=== PATIENT | female | born 1970 | race Caucasian/White ===

== ENCOUNTER 2022-11-16 14:01 | Emergency (ER) | payer OTHER, SELFPAY ==
[2022-11-16 15:24] VITALS: BP 109/78; PULSE 82; RESP 16; TEMP 36.3; O2SAT 100
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
== END 2022-11-16 15:58 | disposition home or self-care (01) ==
PROVIDERS: Emergency Provider Nurse Practitioner Adult Health
DX: M62.838 Other muscle spasm (principal)
CPT/HCPCS: 99213; G0463

== ENCOUNTER 2022-11-24 14:20 | Emergency (ER) | payer OTHER, SELFPAY ==
[2022-11-24 14:50] VITALS: BP 115/80; PULSE 79; RESP 18; TEMP 36.8; O2SAT 100
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
== END 2022-11-24 15:34 | disposition home or self-care (01) ==
PROVIDERS: Emergency Provider Nurse Practitioner Family; PCP Family Medicine
DX: M54.2 Cervicalgia (principal); M25.512 Pain in left shoulder; M54.6 Pain in thoracic spine
CPT/HCPCS: 99213; G0463